=== PATIENT | male | born 1955 ===

== ENCOUNTER 2021-10-14 20:03 | Observation (INO) | payer MEDICARE ==
[~2021-10-14] VITALS: Ht 175.3 cm; Wt 109.8 kg
[2021-10-14] MEDS ORDERED: CARBIDOPA-LEVO1 EA19 PO (22:46)
[2021-10-14] MEDS ORDERED: HYDR10 PO (22:47)
--- NOTE | 2021-10-14 22:49 | NUR ---
DIRECT ADMIT PT DIRECT ADMIT FROM [facility] FOR CP. DENIES ANY CP UPON ARRIVAL TO FLOOR. ORIENTED TO RM & CALL LIGHT.
[2021-10-14 23:35] LABS: BASOPHILS ABSOLUTE AUTO 0.06 K/mm3 (0.00-0.23); BASOPHILS PERCENT AUTO 1 % (0-2); EOSINOPHILS ABSOLUTE AUTO 0.24 K/mm3 (0.00-0.68); EOSINOPHILS PERCENT AUTO 3 % (0-6); Hematocrit 42.2 % (37.0-53.0); Hemoglobin 14.6 g/dL (13.5-17.5); IMMATURE GRAN ABSOLUTE AUTO 0.02 K/mm3 (0.00-0.10); IMMATURE GRAN PERCENT AUTO 0 % (0-1); LYMPHOCYTES ABSOLUTE AUTO 2.76 K/mm3 (0.84-5.20); LYMPHOCYTES PERCENT AUTO 30 % (21-46); MONOCYTES ABSOLUTE AUTO 0.69 K/mm3 (0.16-1.47); MONOCYTES PERCENT AUTO 8 % (4-13); Mean Corpuscular HGB 30.4 pg (26.0-34.0); Mean Corpuscular HGB Conc 34.6 g/dL (31.5-36.5); Mean Corpuscular Volume 88 fL (80-100); Mean Platelet Volume 9.8 fL (9.1-12.4); NEUTROPHILS PERCENT AUTO 59 % (41-73); Platelet Count 292 K/mm3 (150-400); RDW Coefficient Variation 12.9 % (11.7-14.2); RDW Standard Deviation 41.3 fL (35.1-46.3); Red Blood Cell Count 4.81 M/mm3 (4.30-5.90); White Blood Cell Count 9.07 K/mm3 (4.00-11.30)
[2021-10-14 23:50] LABS: International Normalized Ratio 1.04; Prothrombin Time Results 10.9 Sec (9.7-11.5)
[2021-10-14 23:56] LABS: Alanine Aminotransfer (ALT/SGP 21 U/L (12-78); Albumin, Blood 3.7 g/dL (3.4-5.0); Alk Phos 73 U/L (50-136); Anion Gap 8 mmol/L (6-16); Aspartate Aminotrans (AST/SGOT 16 U/L (12-37); Bilirubin, Total 0.6 mg/dL (0.1-1.0); Blood Urea Nitrogen 21 mg/dL (8-24); Bun/Creatinine Ratio 31.4 (12.0-20.0); CO2, Blood 29 mmol/L (21-32); Chloride, Blood 105 mmol/L (98-108); Creatinine, Blood 0.67 mg/dL (0.60-1.20); Globulin, Blood 3.8 g/dL (2.2-4.0); Glomerular Filtration Rate >60 (60-); Glucose, Blood 110 mg/dL (70-99); Potassium, Blood 3.1 mmol/L (3.5-5.5); Sodium, Blood 142 mmol/L (136-145); Total Protein, Blood 7.5 g/dL (6.4-8.2)
[2021-10-15] MEDS ORDERED: HYDCHL25 PO (05:54)
--- NOTE | 2021-10-15 06:41 | NUR ---
SHIFT SUMMARY PT ADMITTED LAST NIGHT FOR CP. DENIES ANY PAIN SINCE TAKING NITRO IN [facility]. REPORTS HIS PRESSURE IN MID CHEST RAIDIATED TO L ARMPIT, WAS WORSE c ACTIVITY, INCLUDING WALKING TO RESTROOM. REPORTS HE'S HAD THIS PAIN SINCE ROUGHLY . AOX4. HAS BUE TREMORS R/T HX PARKINSONS. VSS. TELE NSR 60'S TO SB HR 47-50'S. EKG SB. HEP DRIP RUNNING 15U/KG/HR. HAS BEEN NPO SINCE MIDNIGHT. CALL LIGHT IN REACH.
--- NOTE | 2021-10-15 07:37 | NUR ---
RECIEVED A CALL FROM TELE- PT HR COMING IN IN THE 180'S. RN IN THE ROOM WITH THE PT AT THE TIME OF THE CALL, NO S&S OF DISTRESS. PT DENIES CP AND SOB. AUSCULTATED HR AND APICAL PULSE IS IN THE 60'S. PT HAS TREMMORS THESE ARE LIKELY DISRUPTING TELE. PT HAD NS RUNNING AT 75ML/HR WITH A PB OF HEPARIN DRIP AT 15U/KG/HR VERIFIED WITH LOIS MORROW AT SHIFT CHANGE AND ORDER VERIFIED WITH JACQUIE LEON BY PHONE. PT IN BED VISITING WITH HIS FAMILY AT THIS TIME WILL CTM.
[2021-10-15 07:49] LABS: CPK Creatine Kinase 93 U/L (39-308)
--- NOTE | 2021-10-15 08:30 | NUR ---
PT HAD A RATE CHANGE ORDERED FOR HEPARIN DRIP. RATE CHANGE VERIFIED WITH RN JACKIE.
--- NOTE | 2021-10-15 09:00 | NUR ---
SPOKE TO MANAGER OF INFORMATION WHEN HE ROUNDED ON THE PT. NIGHT RN STATED PT TOLD STAFF INCORRECTLY THAT HE TOOK HYDRALIZINE, PT ACTUALLY TAKES HCTZ AT HOME. MANAGER OF INFORMATION IS AWARE AND WILL ORDER MEDS.
--- NOTE | 2021-10-15 13:00 | NUR ---
PT WAS TRANSPORTED TO THE [facility] HEPARIN DRIP WAS DC'D BY THE STAFF THAT TRANSPORTED THE PT. CALLED AND NOTIFIED THE PHARMACY.
--- NOTE | 2021-10-15 14:00 | NUR ---
CALLED REPORT TO [employer]BERLOIS CUENCA. PT WAS TAKEN TO THE [facility] AND WILL BE RETURNING TO PCU AFTER. REPORT COMPLETED NO FURTHER QUESTIONS AT THAT TIME.
[2021-10-15 16:04] LABS: CPK Creatine Kinase 96 U/L (39-308)
--- NOTE | 2021-10-15 18:12 | NUR ---
SHIFT NOTE PT AR[facility]IV[facility]ING [facility] TO [facility], WITH RT RADIAL ACCESS. RADIAL ACCESS WITH NO ACTIVE BLEED, NO HEMATOMA, GOOD PULSES, SPO2 97%, NO TINGLING OR NUMBNESS. TR BAND IN THE PROCESS OF RECOVERY AT THE TIME THIS. DENIES CP OR SOB. VSS. NADN. A/O X4, ANSWERING QUESTIONS APPRORIATELY. WILL CONTINUE TO MONITOR FOR HCANGES. DR FANG HAS BEEN IN TO ASSESS PT, HCTZ WILL BE HELD PER DR FANG. PT WITH GOOD APPETITE
--- NOTE | 2021-10-15 20:49 | NUR ---
tr band TR BAND OFF AT THIS TIME. NO BRUISING, NO BLEEDING. NO HEMATOMA. SP02 READING AT 95%. OPSITE IN PLACE. ARM BOARD IN PLACE.
[2021-10-16 04:00] LABS: Anion Gap 5 mmol/L (6-16); Blood Urea Nitrogen 20 mg/dL (8-24); Bun/Creatinine Ratio 27.2 (12.0-20.0); CO2, Blood 29 mmol/L (21-32); Calcium, Blood 8.7 mg/dL (8.5-10.1); Chloride, Blood 107 mmol/L (98-108); Creatinine, Blood 0.73 mg/dL (0.60-1.20); Glomerular Filtration Rate >60 (60-); Glucose, Blood 110 mg/dL (70-99); Magnesium, Blood 2.4 mg/dL (1.6-2.4); Potassium, Blood 3.3 mmol/L (3.5-5.5); Sodium, Blood 141 mmol/L (136-145)
--- NOTE | 2021-10-16 05:16 | NUR ---
SHIFT SUMMARY PT ALERT, PLEASANT, ORIENTED X4. SEE SHIFT ASSESSMENT FOR DETAILS. VSS, PT WORE CPAP AT [facility]. PT HAS R RADIAL SITE, TR BAND REMOVED THIS SHIFT. NO BLEEDING, NO BRUISING. ARM BOARD IN PLACE. PT MAKING CONCIOUS EFFORT TO NOT USE R ARM/HAND. PT UP TO BATHROOM WITH ASSISTANCE TO DISCONNECT CORDS, TO VOID AND HAVE ONE BM THIS SHIFT. FAMILY AND DOG IN ROOM AT START OF SHIFT. PT SLEPT MOST OF NIGHT. CALL LIGHT IN REACH.
[2021-10-16] MEDS ORDERED: ASPI81CH PO (10:44)
[2021-10-16] MEDS ORDERED: CLOP75 PO (10:45)
[2021-10-16] MEDS ORDERED: ATOR80 PO (10:45)
[2021-10-16] MEDS ORDERED: METO25ER PO (10:46)
== END 2021-10-16 12:02 | disposition home or self-care (01) ==
LOC: MEDS 20:03 → PCU 10-15 14:07
PROVIDERS: Internal Medicine; ADMIT Internal Medicine
DX: I25.110 Atherosclerotic heart disease of native coronary artery with unstable angina pectoris (principal); I10 Essential (primary) hypertension; E87.6 Hypokalemia; E66.01 Morbid (severe) obesity due to excess calories; G20 Parkinson's disease; Z88.0 Allergy status to penicillin; Z88.8 Allergy status to other drugs, medicaments and biological substances; Z95.5 Presence of coronary angioplasty implant and graft
CPT/HCPCS: 36415; 71045; 76937; 80048; 80053; 82550; 83735; 84484; 85025; 85347; 85610; 85730; 93005; 93010; 93454; 94660; 94762; 99152; 99153; A9270; C1725; C1769; C1874; C1887; C1894; C9600; J1644; J2250; J3010; J7030; J7050; Q9967